=== PATIENT | female | born 1995 | race African-American/Black ===

== ENCOUNTER → 2017-04-13 | Emergency (ER) | payer OTHER ==
[~2017-04-13] VITALS: Ht 157.5 cm; Wt 44.5 kg
[~2017-04-13] MED LIST: DEPO-PROVE150 MG/1 M IM; PROTONIX40 MG PO; VENTOLIN HFA 1818 GM INH
== END ==
LOC: ER 12:34
DX: Z53.21 Procedure and treatment not carried out due to patient leaving prior to being seen by health care provider (principal)

== ENCOUNTER 2018-04-08 11:41 | Emergency (ER) | payer OTHER ==
[~2018-04-08] VITALS: Ht 157.5 cm; Wt 47.6 kg
[2018-04-08 11:46] VITALS: BP 114/67
[2018-04-08] MEDS ORDERED: ERYTHROMYCIN E3.5 G2 OPHTHALMIC (12:03)
== END 2018-04-08 12:16 | disposition home or self-care (01) ==
LOC: ER 11:41
DX: H10.9 Unspecified conjunctivitis (principal); J45.909 Unspecified asthma, uncomplicated